=== PATIENT | female | born 1985 | race Caucasian/White ===

== ENCOUNTER 2017-11-24 16:33 | Observation (INO) | payer BC ==
[2017-11-24 17:43] LABS: Urine Blood 2+ (NEG); Urine Glucose 1+ (NEG); Urine Protein 3+ (NEG); Urine pH 6.5 (5.0-7.0)
[2017-11-24 17:47] LABS: Urine Bacteria >50 /HPF (<20); Urine Culture Reflex Order NOT NEEDED
[2017-11-24 17:58] LABS: Absolute Lymphocytes (CBC) 1.8 K/uL (0.7-4.9); Absolute Monocytes 1.1 K/uL (0.1-1.3); Absolute Neutrophil 5.5 K/uL (1.8-8.0); Basophils % 0.5 % (0-1.3); Eosinophils % 0.4 % (0-4.4); Lymphocytes % 20.8 % (15.3-44.8); MCH 28.8 pg (27.0-35.0); MCV 81.4 fL (80-100); MPV 8.3 fL (7.6-11.3); Monocytes % 13.2 % (3.3-12.3)
[2017-11-24 18:13] LABS: Albumin 3.9 g/dL (3.4-5.0); Bilirubin Direct 0.1 mg/dL (0-0.2); Bilirubin Total 0.4 mg/dL (0.2-1.0)
[2017-11-24 18:15] LABS: Potassium 2.6 mmol/L (3.5-5.1)
[2017-11-24] MEDS ORDERED: ONDANSETRON 4 MG/2 ML VIAL ONE (18:20)
[2017-11-24] MEDS ORDERED: NA CHLORIDE 0.9% 1,000 ML ONE (18:42)
[2017-11-24] MEDS ORDERED: FAMOTIDINE 20 MG/2 ML VIAL IV ONE (18:42)
[2017-11-24] MEDS ORDERED: KCL 20 MEQ/100 mL IVPB 20 MEQ/100 ML BAG IV ONE ×2 (18:42→22:00)
[2017-11-24] MEDS ORDERED: POTASSIUM CL SA 10 MEQ TAB PO ONE (18:42)
[2017-11-24] MEDS ORDERED: NA CHLORIDE 0.9% 500 ML ONE ×2 (18:43→22:00)
[2017-11-24] MEDS ORDERED: INSULIN -REGULAR HUMAN 50 UNIT/0.5 ML ML ONE (18:45)
--- NOTE | 2017-11-24 19:02 | RAD REPORT ---
EXAM DESCRIPTION: CTAbdomen Pelvis W Contrast - 11/24/2017 6:46 pm CLINICAL HISTORY: Abdominal pain. diarrhea;Abd pain;Nausea / vomiting COMPARISON: None TECHNIQUE: Biphasic CT imaging of the abdomen and pelvis was performed with 100 ml non-ionic IV cont rast. All CT scans are performed using dose optimization technique as appropriate and may include automated exposure control or mA/KV adjustment according to patient size. FINDINGS: Multiple small pulmonary nodules are present in both lower lobes. Diffuse fatty liver is noted. Cholecystectomy clips are seen. Mild splenomegaly is evident. The pancr eas, adrenal glands and kidneys are within normal limits. No bowel obstruction, free air, free fluid or abscess. The appendix appears absent. No evidence of significant lymphadenopathy. No suspicious bony findings. 4 cm left ovarian follicle noted. IMPRESSION: Diffuse fatty liver with splenomegaly evident. Multiple small pulmonary nodules in both lower lobes, nonspecific. Nonemergent followup CT chest asse ssment is advised.
[2017-11-24 21:46] LABS: BUN Blood Urea Nitrogen 9 mg/dL (7-18); Bicarbonate 25 mmol/L (21-32); Glucose Level 237 mg/dL (74-106); Sodium Level 136 mmol/L (136-145)
[2017-11-24 21:47] LABS: Potassium 2.9 mmol/L (3.5-5.1)
[2017-11-24] MEDS ORDERED: POTASSIUM 25 MEQ EFFERV TAB ONE (22:00)
[2017-11-24] MEDS ORDERED: PROMETHAZINE 25 MG/ML VIAL ONE ×2 (22:18→22:24)
--- NOTE | 2017-11-24 22:50 | ER ---
Nurse's Notes [facility] Name: Tonia Brandt Age: 31 yrs Sex: Female : 1985 Arrival Date: 11/24/2017 Time: 16:36 Bed 23 Private MD: None, None Diagnosis: Nausea and vomiting-Intractable;Diarrhea, unspecified;Hypokalemia Presentation: 11/24 16:56 Presenting complaint: Patient states: On Tuesday she starting having N/V/D and abdominal aj1 pain in the umbilical area. Reports her stool is black and watery. Reports she has been unable to keep down food or fluid. Transition of care: patient was not received from another setting of care. Onset of symptoms was November 19, 2017. Risk Assessment: Do you want to hurt yourself or someone else? Patient reports no desire to harm self or others. Initial Sepsis Screen: Does the patient meet any 2 criteria? HR > 90 bpm. No. Patient's initial sepsis screen is negative. Does the patient have a suspected source of infection? Yes: Acute abdominal pain. Care prior to arrival: None. 16:56 Method Of Arrival: Ambulatory aj 16:56 Acuity: KI 3 aj1 Triage Assessment: 17:00 General: Appears in no apparent distress. uncomfortable, Behavior is calm, cooperative, aj1 appropriate for age. Pain: Complains of pain in umbilical area Pain does not radiate. Pain currently is 8 out of 10 on a pain scale. Quality of pain is described as crampy, Pain began 5 days ago Is continuous. Neuro: Level of Consciousness is awake, alert, obeys commands. Cardiovascular: Patient's skin is warm and dry. Respiratory: Airway is patent Respiratory effort is even, unlabored, Respiratory pattern is regular, symmetrical. GI: Reports lower abdominal pain, diarrhea, intolerance of fluids, intolerance of food, nausea, vomiting. 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 - Social history:: Smoking status: Patient/guardian denies using tobacco. - Ebola Screening: : Patient denies travel to an Ebola-affected area in the 21 days before illness onset. Screenin:13 Abuse screen: Denies threats or abuse. Denies injuries from another. Nutritional kr2 screening: No deficits noted. Tuberculosis screening: No symptoms or risk factors identified. Fall Risk None identified. Assessment: 17:18 General: Appears in no apparent distress. uncomfortable, well groomed, well developed, kr2 Behavior is calm, cooperative, appropriate for age. Pain: Complains of pain in umbilical area, right lower quadrant and left lower quadrant Pain does not radiate. Pain currently is 8 out of 10 on a pain scale. Quality of pain is described as sharp, Is continuous, Alleviated by nothing. Neuro: Level of Consciousness is awake, alert, obeys commands, Oriented to person, place, time, situation, Appropriate for age. Cardiovascular: Capillary refill < 3 seconds in bilateral fingers Patient's skin is warm and dry. Respiratory: Airway is patent Respiratory effort is even, unlabored, Respiratory pattern is regular, symmetrical. GI: Abdomen is non-distended, obese, Bowel sounds present X 4 quads. Abd is soft X 4 quads Abdomen is tender to palpation in umbilical area, right lower quadrant and left lower quadrant. : Urine is cloudy. EENT: Oral mucosa is dry. Derm: Skin is intact, with poor turgor Skin is pink, warm \\T\\ dry. Musculoskeletal: Circulation, motion, and sensation intact. 18:33 Reassessment: Patient refused to drink oral contrast, ARMINDA Dyer notified and ordered kr2 patient to be scanned with IV contrast only. CT department notified and preparing to take patient for CT. 18:47 Reassessment: Patient in CT at this time. kr2 20:09 Reassessment: Patient appears in no apparent distress at this time. Patient and/or kr2 family updated on plan of care and expected duration. Pain level reassessed. Patient is alert, oriented x 3, equal unlabored respirations, skin warm/dry/pink. Patient states, "I don't fee 100% but I feel significantly better" Patient states symptoms have improved. 22:22 Reassessment: Patient complains of nausea, provider notified, medicated as ordered, see kr2 MAY. 22:50 Reassessment: Patient states she will not complete IV potassium, "I am going home I am kr2 not doing this." Patient informed of risks and possible complications of low potassium and need to complete IV potassium. ARMINDA Dyer notified. States he will discharge patient. IV DC'd as patient requested, see procedure notes. 23:00 Reassessment: Patient began vomiting again. Provider notified. Patient informed of kr2 risks of going home with continued vomiting. States, "Ok I understand, I will go ahead and stay." Provider in room at this time speaking with patient as well. 11/25 00:00 Reassessment: Patient crying and complains of "feeling anxious and unable to get kr2 comfortable." Complains of pain to epigastric area, no nausea at this time. Notified ARMINDA Dyer, medicated as ordered, see MAY. 00:30 Reassessment: Patient taken to room 214, receiving nurse Yana at bedside. Patient kr2 verbalizes increased comfort and decreased anxiety. No distress. Vital Signs: 11/24 17:00 BP 126 / 103; Pulse 112; Resp 20; Temp 97.0(TE); Pulse Ox 97% on R/A; Height 5 ft. 7 aj1 in. (170.18 cm); Pain 8/10; 19:45 Weight 67.13 kg (R); kr2 20:10 BP 125 / 68; Pulse 69; Resp 12; Pulse Ox 97% on R/A; kr2 21:00 BP 123 / 82; Pulse 80; Resp 17; Pulse Ox 97% ; kr2 23:00 BP 126 / 72; Pulse 80; Resp 17; Pulse Ox 97% ; kr2 11/25 00:00 BP 130 / 76; Pulse 88; Resp 17; Pulse Ox 97% on R/A; kr2 11/24 19:45 Body Mass Index 23.18 (67.13 kg, 170.18 cm) kr2 ED Course: 11/24 16:36 Patient arrived in ED. sb2 16:36 None, None is Private Physician. sb2 16:59 Triage completed. aj1 17:00 Arm band placed on Patient placed in an exam room. aj1 17:03 Ariel Jimenez PA is PHCP. cp 17:03 Yasir Lawler MD is Attending Physician. cp 17:12 Katheryn Sales, BESS is Primary Nurse. kr2 17:13 Patient has correct armband on for positive identification. Bed in low position. Call kr2 light in reach. Side rails up X 1. Pulse ox on. NIBP on. Door closed. Warm blanket given. Head of bed elevated. 17:15 Missed attempt(s): 22 gauge in right forearm. Bleeding controlled, band aid applied, jp3 catheter tip intact. 17:20 Urine collected: clean catch specimen, clear, tigre colored, Amount Voided: 6mL. jp3 17:29 Urine Microscopic Only Sent. jp3 17:40 Inserted saline lock: 22 gauge in right antecubital area, using aseptic technique. ss Blood collected. 18:46 CT Abd/Pelvis - W/Contrast In Process Unspecified. EDMS 19:17 EKG done, by ED staff, reviewed by Ariel HILLIARD. kr2 21:00 Repeat lab(s) drawn. by me, sent to lab. EKG done, by ED staff, reviewed by Ariel Jimenez kr2 PA. 22:48 Jaimee Ramires MD is Referral Physician. cp 23:05 Inserted saline lock: 22 gauge in left forearm, using aseptic technique. ,using aseptic kr2 technique. Performed by BESS Smith. 23:14 Janna Howard MD is Hospitalizing Provider. 11/25 00:15 No provider procedures requiring assistance completed. Patient admitted, IV remains in kr2 place. Administered Medications: 11/24 18:28 Drug: Zofran 4 mg Route: IVP; Site: right antecubital; kr2 20:20 Follow up: Response: No adverse reaction; Nausea is decreased kr2 19:16 Drug: Pepcid 20 mg Route: IVP; Site: right antecubital; kr2 20:22 Follow up: Response: No adverse reaction; Pain is decreased; Nausea is decreased kr2 19:16 Drug: Potassium Chloride 40 mEq Route: PO; kr2 20:21 Follow up: Response: No adverse reaction kr2 20:55 Follow up: Response: No adverse reaction kr2 19:17 Drug: Potassium Chloride 20 mEq Route: IV; Rate: calculated rate; Site: right kr2 antecubital; 20:55 Follow up: Response: No adverse reaction; IV Status: Completed infusion kr2 19:17 Drug: NS 0.9% 1000 ml Route: IV; Rate: 1 bolus; Site: right antecubital; kr2 20:22 Follow up: Response: No adverse reaction; IV Status: Completed infusion kr2 19:18 Drug: NovoLIN R 7 units {Co-Signature: zoë (Luis Khanna RN).} Route: Sub-Q; Site: kr2 right upper arm; 20:27 Follow up: Response: No adverse reaction; Blood sugar is lowered kr2 20:22 Drug: NS 0.9% 1000 ml Route: IV; Rate: 150 ml/hr; Site: right antecubital; kr2 22:12 Drug: Potassium Chloride 20 mEq Route: IV; Rate: calculated rate; Site: right kr2 antecubital; 11/25 00:00 Follow up: Response: No adverse reaction; IV Status: Completed infusion kr2 11/24 22:22 Drug: Phenergan 25 mg Route: IVP; Site: right antecubital; kr2 22:45 Follow up: Response: No adverse reaction; Nausea is decreased kr2 22:24 Drug: Potassium Effervescent Tablet 50 mEq Route: PO; kr2 23:00 Follow up: Response: Patient vomited, provider notified kr2 11/25 00:04 Drug: fentaNYL (PF) 25 mcg Route: IVP; Site: left forearm; kr2 00:15 Follow up: Response: No adverse reaction; Pain is decreased kr2 00:05 Drug: Ativan 0.5 mg Route: IVP; Site: left forearm; kr2 00:15 Follow up: Response: No adverse reaction; Anxiety decreased kr2 Point of Care Testing: Blood Glucose: 11/24 20:26 Blood Glucose: 239 mg/dL; kr2 Ranges: Outcome: 22:49 Discharge ordered by MD. cp 23:15 Decision to Hospitalize by Provider. cp 11/25 00:15 Instructed on the need for admit, Demonstrated understanding of instructions. kr2 00:15 Discharge instructions given to patient. kr2 00:20 Admitted to Tele accompanied by nurse, via wheelchair, room 214, with chart, Report kr2 called to BESS Millan 00:20 Condition: stable 00:26 Patient left the ED. kr2 Signatures: Dispatcher [employer] EDPenny Edge RN RN aj1 Ade Gil RN RN ss Ariel Jimenez PA PA cp Reaves, Karey, RN RN kr2 Charmaine Mike sb2 Georges Steiner jp3 Luis Khanna RN rv Corrections: (The following items were deleted from the chart) 11/24 20:29 20:09 Reassessment: Patient appears in no apparent distress at this time. Patient kr2 and/or family updated on plan of care and expected duration. Pain level reassessed. Patient is alert, oriented x 3, equal unlabored respirations, skin warm/dry/pink. Patient denies pain at this time. kr2 11/25 00:58 00:56 Condition: stable kr2 kr2 :58 00:56 Admitted to Tele accompanied by nurse, via wheelchair, room 214, with chart, kr2 Report called to BESS Millan kr2 00:15 Instructed on the need for admit, Demonstrated understanding of instructions, kr2 kr2
--- NOTE | 2017-11-24 22:50 | EDPHYS ---
Physician Documentation [facility] Name: Tonia Brandt Age: 31 yrs Sex: Female : 1985 Arrival Date: 11/24/2017 Time: 16:36 Bed 23 Private MD: None, None ED Physician Yasir Lawler HPI: 11/24 17:30 This 31 yrs old Female presents to ER via Ambulatory with complaints of cp Nausea/Vomiting/Diarrhea. 17:30 The patient presents to the emergency department with nausea, that is moderate, cp vomiting, that is intermittent, diarrhea, that is intermittent, abdominal pain. Onset: The symptoms/episode began/occurred 4 day(s) ago. Possible causes: unknown. Associated signs and symptoms: Pertinent negatives: constipation, fever, GI bleeding. Severity of symptoms: in the emergency department the symptoms are unchanged despite home interventions. 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 - Social history:: Smoking status: Patient/guardian denies using tobacco. - Ebola Screening: : Patient denies travel to an Ebola-affected area in the 21 days before illness onset. ROS: 17:35 Constitutional: Positive for poor PO intake, Negative for fever. cp 17:35 Eyes: Negative for injury, pain, redness, and discharge. cp 17:35 Cardiovascular: Negative for chest pain, edema, palpitations. cp 17:35 ENT: Negative for drainage from ear(s), ear pain, sore throat, difficulty swallowing, cp difficulty handling secretions. 17:35 Respiratory: Negative for cough, shortness of breath, wheezing. 17:35 Abdomen/GI: Positive for abdominal pain, nausea, vomiting, diarrhea, anorexia, black/tarry stool, Negative for constipation, rectal bleeding. 17:35 Back: Negative for radiated pain. 17:35 : Negative for urinary symptoms. 17:35 Skin: Negative for cellulitis, rash. 17:35 Neuro: Negative for altered mental status, headache, syncope, near syncope, weakness. 17:35 All other systems are negative. Exam: 17:41 Head/Face: Normocephalic, atraumatic. Eyes: Pupils equal round and reactive to light, cp extra-ocular motions intact. Lids and lashes normal. Conjunctiva and sclera are non-icteric and not injected. Cornea within normal limits. Periorbital areas with no swelling, redness, or edema. ENT: Nares patent. No nasal discharge, no septal abnormalities noted. Tympanic membranes are normal and external auditory canals are clear. Oropharynx with no redness, swelling, or masses, exudates, or evidence of obstruction, uvula midline. Mucous membranes moist. Chest/axilla: Normal chest wall appearance and motion. Nontender with no deformity. No lesions are appreciated. 17:41 Constitutional: The patient appears in no acute distress, alert, awake, non-toxic, well developed, well nourished. 17:41 Cardiovascular: Rate: tachycardic, Rhythm: regular, Edema: is not appreciated, JVD: is not appreciated. 17:41 Respiratory: the patient does not display signs of respiratory distress, Respirations: normal, no use of accessory muscles, no retractions, no splinting, no tachypnea, labored breathing, is not present, Breath sounds: are clear throughout, no decreased breath sounds, no stridor, no wheezing. 17:41 Abdomen/GI: Inspection: abdomen appears normal, Bowel sounds: active, all quadrants, Palpation: soft, in all quadrants, mild abdominal tenderness, in all quadrants, rebound tenderness, is not appreciated, voluntary guarding, is not appreciated, involuntary guarding, is not appreciated, Rectal exam: Stool: guaiac negative, black. 17:41 Back: pain, is absent, ROM is normal. 17:41 Skin: cellulitis, is not appreciated, no rash present. 19:15 ECG was reviewed by the Attending Physician. Vital Signs: 17:00 BP 126 / 103; Pulse 112; Resp 20; Temp 97.0(TE); Pulse Ox 97% on R/A; Height 5 ft. 7 aj1 in. (170.18 cm); Pain 8/10; 19:45 Weight 67.13 kg (R); kr2 20:10 BP 125 / 68; Pulse 69; Resp 12; Pulse Ox 97% on R/A; kr2 21:00 BP 123 / 82; Pulse 80; Resp 17; Pulse Ox 97% ; kr2 23:00 BP 126 / 72; Pulse 80; Resp 17; Pulse Ox 97% ; kr2 11/25 00:00 BP 130 / 76; Pulse 88; Resp 17; Pulse Ox 97% on R/A; kr2 11/24 19:45 Body Mass Index 23.18 (67.13 kg, 170.18 cm) [facility] MDM: 11/24 17:03 Patient medically screened. cp 18:00 Differential diagnosis: Nonspecific abd pain, gastritis, cholecystitis, pancreatitis, cp viral gastroenteritis, gastroenteritis, GI bleed, dehydration. 23:12 Data reviewed: vital signs, nurses notes, lab test result(s), EKG, radiologic studies, cp CT scan, and as a result, I will admit patient. 23:12 Response to treatment: the patient's symptoms have mildly improved after treatment. cp 23:15 Physician consultation: Janna Howard MD was contacted at 23:15, regarding admission, cp to the medical/surgical unit. patient's condition. 11/24 17:17 Order name: Amylase, Serum; Complete Time: 18:16 cp 11/24 17:17 Order name: Basic Metabolic Panel; Complete Time: 18:16 cp 11/24 19:10 Interpretation: Normal except: NA 132; K 2.6; CL 96; GLUC 322; GFR 83. cp 11/24 17:17 Order name: CBC with Diff; Complete Time: 19:09 cp 11/24 19:09 Interpretation: Normal except: RBC 5.90; HGB 17.0; HCT 48.0; MCV 81.4; MN% 13.2. cp 11/24 17:17 Order name: Creatinine for Radiology; Complete Time: 18:16 cp 11/24 17:17 Order name: Hepatic Function; Complete Time: 18:16 cp 11/24 19:10 Interpretation: Normal except: AST 59; ALK 149; TP 9.0; GLOB 5.1; A/G 0.8. cp 11/24 17:17 Order name: Lipase; Complete Time: 18:16 cp 11/24 17:17 Order name: Urine Microscopic Only; Complete Time: 18:16 cp 11/24 19:10 Interpretation: Normal except: UWBC 10-20; URBC 10-20; UBACT >50; SQEPI LOADED. cp 11/24 17:29 Order name: Urine Dipstick--Ancillary (enter results); Complete Time: 18:16 eb 11/24 19:11 Interpretation: Normal except: UGLUC 1+; UBLD 2+; UPROT 3+; UESTR TRACE. cp 11/24 17:29 Order name: Urine --Ancillary (enter results); Complete Time: 18:16 eb 11/24 17:42 Order name: Guiac eb 11/24 20:41 Order name: BMP: redraw after potassium completes; Complete Time: 21:49 cp 11/24 21:49 Interpretation: Normal except: K 2.9; GLUC 237. cp 11/24 18:06 Order name: CT Abd/Pelvis - W/Contrast; Complete Time: 19:09 cp 11/24 18:20 Order name: EKG; Complete Time: 18:20 cp 11/24 17:17 Order name: Urine Test (obtain specimen); Complete Time: 17:29 cp 11/24 17:17 Order name: IV Saline Lock; Complete Time: 17:40 cp 11/24 17:17 Order name: Labs collected and sent; Complete Time: 17:40 cp 11/24 17:17 Order name: Urine Dipstick-Ancillary (obtain specimen); Complete Time: 17:29 cp 11/24 18:20 Order name: EKG - Nurse/Tech; Complete Time: 19:17 cp 11/24 20:41 Order name: EKG - Nurse/Tech: repeat after potassium completes; Complete Time: 21:11 cp 11/24 21:51 Order name: PO challenge; Complete Time: 22:24 cp EC:15 Rate is 94 beats/min. Rhythm is regular. ID interval is normal. QRS interval is normal. cp Interpreted by me. Reviewed by me. Administered Medications: 18:28 Drug: Zofran 4 mg Route: IVP; Site: right antecubital; kr2 20:20 Follow up: Response: No adverse reaction; Nausea is decreased kr2 19:16 Drug: Pepcid 20 mg Route: IVP; Site: right antecubital; kr2 20:22 Follow up: Response: No adverse reaction; Pain is decreased; Nausea is decreased kr2 19:16 Drug: Potassium Chloride 40 mEq Route: PO; kr2 20:21 Follow up: Response: No adverse reaction kr2 20:55 Follow up: Response: No adverse reaction kr2 19:17 Drug: Potassium Chloride 20 mEq Route: IV; Rate: calculated rate; Site: right kr2 antecubital; 20:55 Follow up: Response: No adverse reaction; IV Status: Completed infusion kr2 19:17 Drug: NS 0.9% 1000 ml Route: IV; Rate: 1 bolus; Site: right antecubital; kr2 20:22 Follow up: Response: No adverse reaction; IV Status: Completed infusion kr2 19:18 Drug: NovoLIN R 7 units {Co-Signature: rv (Luis Khanna RN).} Route: Sub-Q; Site: [facility] right upper arm; 20:27 Follow up: Response: No adverse reaction; Blood sugar is lowered kr2 20:22 Drug: NS 0.9% 1000 ml Route: IV; Rate: 150 ml/hr; Site: right antecubital; kr2 22:12 Drug: Potassium Chloride 20 mEq Route: IV; Rate: calculated rate; Site: right kr2 antecubital; 11/25 00:00 Follow up: Response: No adverse reaction; IV Status: Completed infusion kr2 11/24 22:22 Drug: Phenergan 25 mg Route: IVP; Site: right antecubital; kr2 22:45 Follow up: Response: No adverse reaction; Nausea is decreased kr2 22:24 Drug: Potassium Effervescent Tablet 50 mEq Route: PO; kr2 23:00 Follow up: Response: Patient vomited, provider notified kr2 11/25 00:04 Drug: fentaNYL (PF) 25 mcg Route: IVP; Site: left forearm; kr2 00:15 Follow up: Response: No adverse reaction; Pain is decreased kr2 00:05 Drug: Ativan 0.5 mg Route: IVP; Site: left forearm; kr2 00:15 Follow up: Response: No adverse reaction; Anxiety decreased kr2 Point of Care Testing: Blood Glucose: 11/24 20:26 Blood Glucose: 239 mg/dL; kr2 Ranges: Critical Glucose Levels:Adult <50 mg/dl or >400 mg/dl <40 mg/dl or >180 mg/dl Disposition: 11/24/17 23:15 Hospitalization ordered by Janna Howard for Observation. Preliminary diagnosis are Nausea and vomiting - Intractable, Diarrhea, unspecified, Hypokalemia. - Bed requested for Telemetry/MedSurg (observation). - Status is Observation. kr2 - Condition is Stable. - Problem is new. - Symptoms have improved. UTI on Admission? No Addendum: 11/29/2017 23:41 Co-signature as Attending Physician, Yasir Lawler MD. r n Signatures: Dispatcher [employer] EDPenny Edge RN RN aj1 Jaimie Parsons RN RN mw Nieto, Roman, MD MD rn Page, Corey, PA PA Katheryn Martínez RN RN kr2 Luis Khanna RN rv Corrections: (The following items were deleted from the chart) 11/24 22:53 22:49 11/24/2017 22:49 Discharged to Home. Impression: Hypokalemia; Nausea and cp vomiting; Diarrhea, unspecified. Condition is Stable. Forms are Medication Reconciliation Form, Thank You Letter, Antibiotic Education, Prescription Opioid Use. Follow up: Jaimee Ramires; When: 2 - 3 days; Reason: diarrhea and vomiting. Follow up: Private Physician; When: Tomorrow; Reason: recheck potassium level. Problem is new. Symptoms have improved. 23:21 23:15 Hospitalization Ordered by Janna Howard MD for Observation. Preliminary diagnosis is Nausea and vomiting - Intractable; Diarrhea, unspecified; Hypokalemia. Bed requested for Telemetry/MedSurg (observation). Status is Observation. Condition is Stable. Problem is new. Symptoms have improved. UTI on Admission? No. cp 11/25 00:26 11/24 23:21 11/24/2017 23:15 Hospitalization Ordered by Janna Howard MD for kr2 Observation. Preliminary diagnosis is Nausea and vomiting - Intractable; Diarrhea, unspecified; Hypokalemia. Bed requested for Telemetry/MedSurg (observation). Status is Observation. Condition is Stable. Problem is new. Symptoms have improved. UTI on Admission? No. mw
[2017-11-24] MEDS ORDERED: ACETAMINOPHEN 500 MG TAB PO PRN (23:27)
[2017-11-24] MEDS ORDERED: LORazepam 2 MG/ML VIAL ONE (23:43)
[2017-11-24] MEDS ORDERED: NA CHLORIDE 0.9% 250 ML ONE (23:46)
[2017-11-25] MEDS ORDERED: FENTANYL CITR 100 MCG/2 ML ONE (00:07)
[2017-11-25] MEDS: NA CHLORIDE 0.9% 1,000 ML IV SCH ×3 (00:43→19:13)
[2017-11-25] MEDS: ONDANSETRON 4 MG/2 ML VIAL IV SCH ×4 (00:43→11:45)
[2017-11-25] MEDS: MORPHINE 4 MG/ML SYR IV PRN ×3 (02:28→10:46)
[2017-11-25 04:09] LABS: Urine Appearance CLOUDY; Urine Bilirubin NEGATIVE (NEG); Urine Blood TRACE (NEG); Urine Color YELLOW; Urine Glucose 1+ (NEG); Urine Protein 1+ (NEG); Urine Specific Gravity >=1.030 (1.005-1.030); Urine Urobilinogen 0.2 mg/dL (0.2-1.0); Urine pH 6.5 (5.0-7.0)
[2017-11-25 04:16] LABS: Urine Microscopic Reflex ORDER UMIC
[2017-11-25 05:20] LABS: Urine Bacteria >50 /HPF (<20); Urine Culture Reflex Order NOT NEEDED; Urine RBC <5 /HPF (NONE SEEN)
[2017-11-25 05:42] LABS: ALT/SGPT 61 U/L (12-78); AST/SGOT 50 U/L (15-37); Alkaline Phosphatase 114 U/L (45-117); BUN Blood Urea Nitrogen 7 mg/dL (7-18); Bicarbonate 25 mmol/L (21-32); Bilirubin Total 0.3 mg/dL (0.2-1.0); Glucose Level 153 mg/dL (74-106); Protein, Total 6.8 g/dL (6.4-8.2); Sodium Level 142 mmol/L (136-145)
[2017-11-25 05:50] LABS: Absolute Lymphocytes (CBC) 1.8 K/uL (0.7-4.9); Absolute Monocytes 0.8 K/uL (0.1-1.3); Basophils % 0.5 % (0-1.3); Eosinophils % 0.9 % (0-4.4); Hematocrit 39.5 % (36.0-45.0); Lymphocytes % 26.7 % (15.3-44.8); MCH 28.8 pg (27.0-35.0); MPV 8.2 fL (7.6-11.3); Monocytes % 11.9 % (3.3-12.3); RBC Red Blood Cell Count 4.87 M/uL (3.86-4.86)
[2017-11-25] MEDS ORDERED: KCL 20 MEQ/100 mL IVPB 20 MEQ/100 ML BAG IV SCH (06:00)
[2017-11-25] MEDS: KCL 20 MEQ/100 mL IVPB 20 MEQ/100 ML BAG IV SCH ×2 (06:32→08:46)
--- NOTE | 2017-11-25 08:24 | P.HP ---
Certification for Inpatient Patient admitted to: Observation With expected LOS: <2 Midnights Patient will require the following post-hospital care: None Practitioner: I am a practitioner with admitting privileges, knowledge of patient current condition, hospital course, and medical plan of care. Services: Services provided to patient in accordance with Admission requirements found in Title 42 Section 412.3 of the Code of Federal Regulations Patient History Date of Service: 11/25/17 Reason for admission: Intractable nausea and vomiting and diarrhea History of Present Illness: Patient is a 31-year-old female who came to the hospital with intractable nausea and vomiting. Patient also has some abdominal discomfort mainly around the umbilical region. She has also been having watery stools. She said her mother was having similar complaints as well. Otherwise no one in her household has been suffering from the same issues. She came into the emergency room her workup revealed that she had a fatty liver along with splenomegaly, and her CT scan also revealed some pulmonary nodules. Patient was also severely hypokalemic it had some other mildly elevated liver enzymes. At this time patient be admitted to the hospital and treated conservatively with IV hydration, anti emetics, pain control, and will start a clear liquid diet in the next 24-48 hr. Allergies levofloxacin [From Levaquin] Allergy (Mild, Verified 11/25/17 00:27) Nausea/Vomiting Home Medications: Unobtainable 11/25/17 - Past Medical/Surgical History Has patient received pneumonia vaccine in the past: No Diabetic: Yes -: DM -: Cholecystectomy -: appy -: breast reduction -: - Family History Mother Family History: Reviewed- Non-Contributory - Social History Smoking Status: Never smoker Alcohol use: Yes CD- Drugs: No Caffeine use: Yes Place of Residence: Home Review of Systems 10-point ROS is otherwise unremarkable Physical Examination - Vital Signs Temperature: 97.5 F Blood Pressure: 103/65 Pulse: 82 Respirations: 18 Pulse Ox (%): 94 - Physical Exam General: Alert, In no apparent distress, Oriented x3 HEENT: Atraumatic, PERRLA, Mucous membr. moist/pink, EOMI, Sclerae nonicteric Neck: Supple, 2+ carotid pulse no bruit, No LAD, Without JVD or thyroid abnormality Respiratory: Clear to auscultation bilaterally, Normal air movement Cardiovascular: Regular rate/rhythm, Normal S1 S2 Gastrointestinal: Normal bowel sounds, Soft and benign, Non-distended, No rebound, No guarding, Tenderness Musculoskeletal: No clubbing, No swelling, No tenderness Integumentary: No rashes Neurological: Normal gait, Normal speech, Normal strength at 5/5 x4 extr, Normal tone, Sensation intact, Cranial nerves 3-12 intact, Normal reflexes 2+, Normal affect Lymphatics: No axilla or inguinal lymphadenopathy - Studies Laboratory Data (last 24 hrs) 11/24/17 21:00: Sodium 136, Potassium 2.9 L*, BUN 9, Creatinine 0.60, Glucose 237 H 11/24/17 17:35: Creatinine 0.80 11/24/17 17:35: WBC 8.5, Hgb 17.0 H, Hct 48.0 H, Plt Count 272 11/24/17 17:35: Sodium 132 L, Potassium 2.6 L*, BUN 10, Creatinine 0.80, Glucose 322 H, Total Bilirubin 0.4, AST 59 H, ALT 78, Alkaline Phosphatase 149 H , Amylase 40, Lipase 81 Assessment & Plan - Problems (Diagnosis) (1) Viral gastroenteritis Current Visit: Yes Status: Acute - Plan 1. Continue with IV hydration 2. Continue with IV antiemetic 3. Continue with pain control as needed 4. NPO and slowly advanced diet to clear liquids 5. GI follow-up as an outpatient to evaluate CT scan findings; patient should get a CT scan with contrast in next 12 weeks 6. Monitor CBC, BMP, LFTs and lipase along with electrolytes. Anticipate discharge in the next 24-48 hr as patient's symptomatology improves 7. GI and DVT prophylaxis Discharge Plan: Home Plan to discharge in: 24 Hours - Advance Directives Does patient have a Living Will: No Does patient have a Durable POA for Healthcare: No - Code Status/Comfort Care Code Status Assessed: Yes Code Status: Full Code Critical Care: No Time Spent Managing PTS Care (In Minutes): 50
[2017-11-25] MEDS ORDERED: POTASSIUM 25 MEQ EFFERV TAB PO ONE ×2 (12:33→21:50)
[2017-11-25] MEDS: ONDANSETRON 4 MG (ODT) TAB PO PRN ×3 (12:43→21:13)
[2017-11-25] MEDS: TRAMADOL HCL 50 MG TAB PO PRN ×3 (12:44→23:51)
[2017-11-25 15:20] LABS: Urine Appearance CLOUDY; Urine Bilirubin NEGATIVE (NEG); Urine Blood NEGATIVE (NEG); Urine Color YELLOW; Urine Glucose NEGATIVE (NEG); Urine Protein 1+ (NEG); Urine Urobilinogen 0.2 mg/dL (0.2-1.0); Urine pH 5.5 (5.0-7.0)
[2017-11-25 15:28] LABS: Urine Microscopic Reflex ORDER UMIC
[2017-11-25 15:53] LABS: Urine Bacteria 20-50 /HPF (<20); Urine Culture Reflex Order REFLEXED; Urine Mucus 1+ /HPF (NONE SEEN); Urine RBC <5 /HPF (NONE SEEN)
[2017-11-25] MEDS ORDERED: MELATONIN 3 MG TABLET PO PRN (16:50)
[2017-11-25] MEDS: METFORMIN ER 500 MG TAB PO SCH (21:00)
[2017-11-25] MEDS ORDERED: LORazepam 2 MG/ML VIAL IV ONE (21:00)
[2017-11-25] MEDS: LORAZEPAM 0.5 MG TABLET PO ONE ×2 (21:05→21:39)
--- NOTE | 2017-11-26 06:10 | EKG ---
Test Date: 2017-11-24 Test Time: 21:03:55 Advertising Writer: SILVIA MEASUREMENT RESULTS: Intervals: Rate: 87 FL: 160 QRSD: 96 QT: 386 QTc: 464 [place]: P: 49 FL: 160 QRS: 17 T: 35 INTERPRETIVE STATEMENTS: Sinus rhythm with fusion complexes Low voltage QRS Incomplete right bundle branch block Prolonged QT Abnormal ECG Compared to ECG 11/24/2017 19:08:28 Fusion complex(es) now present Prolonged QT interval now present Myocardial infarct finding no longer present Electronically Signed On 11-26-17 06:08:05 CDT by Kartik Carter
--- NOTE | 2017-11-26 06:11 | EKG ---
Test Date: 2017-11-24 Test Time: 19:08:28 [employer] Analyst: SILVIA MEASUREMENT RESULTS: Intervals: Rate: 94 FL: 168 QRSD: 92 QT: 362 QTc: 452 [place]: P: 41 FL: 168 QRS: -4 T: 42 INTERPRETIVE STATEMENTS: Normal sinus rhythm Low voltage QRS Incomplete right bundle branch block Inferior infarct, age undetermined Abnormal ECG Compared to ECG 08/17/2016 17:09:10 Incomplete right bundle-branch block now present Myocardial infarct finding now present Electronically Signed On 11-26-17 06:08:13 CDT by Kartik Carter
[2017-11-26 06:16] LABS: BUN Blood Urea Nitrogen 3 mg/dL (7-18); Bicarbonate 26 mmol/L (21-32); Glucose Level 155 mg/dL (74-106); Potassium 3.3 mmol/L (3.5-5.1); Sodium Level 140 mmol/L (136-145)
[2017-11-26] MEDS ORDERED: POTASSIUM 25 MEQ EFFERV TAB PO ONE (06:34)
[2017-11-26] MEDS: METFORMIN ER 500 MG TAB PO SCH (09:00)
[2017-11-26] MEDS: TRAMADOL HCL 50 MG TAB PO PRN (09:53)
--- NOTE | 2017-11-26 13:03 | P.SSS ---
Patient History Date of Service: 11/26/17 Reason for admission: Intractable nausea and vomiting and diarrhea History of Present Illness: Patient is a 31-year-old female who came to the hospital with intractable nausea and vomiting. Patient also has some abdominal discomfort mainly around the umbilical region. She has also been having watery stools. She said her mother was having similar complaints as well. Otherwise no one in her household has been suffering from the same issues. She came into the emergency room her workup revealed that she had a fatty liver along with splenomegaly, and her CT scan also revealed some pulmonary nodules. Patient was also severely hypokalemic it had some other mildly elevated liver enzymes. At this time patient be admitted to the hospital and treated conservatively with IV hydration, anti emetics, pain control, and will start a clear liquid diet in the next 24-48 hr. Allergies Allergies levofloxacin [From Levaquin] Allergy (Mild, Verified 11/25/17 00:27) Nausea/Vomiting Home Medications: Metformin ER [Glucophage ER*] 1 tab PO BID 11/25/17 levoFLOXacin [Levaquin] 500 mg PO DAILY #10 tab 11/26/17 metroNIDAZOLE [Flagyl] 500 mg PO Q8H #30 tablet 11/26/17 - Past Medical/Surgical History Has patient received pneumonia vaccine in the past: No Diabetic: Yes -: DM -: Cholecystectomy -: appy -: breast reduction -: - Social History Smoking Status: Never smoker Alcohol use: Yes CD- Drugs: No Caffeine use: Yes Place of Residence: Home Review of Systems 10-point ROS is otherwise unremarkable Physical Examination - Vital Signs Temperature: 97.3 F Blood Pressure: 111/74 Pulse: 83 Respirations: 16 Pulse Ox (%): 95 - Physical Exam General: Alert, In no apparent distress HEENT: Atraumatic, PERRLA, Mucous membr. moist/pink, EOMI, Sclerae nonicteric Neck: Supple, 2+ carotid pulse no bruit, No LAD, Without JVD or thyroid abnormality Respiratory: Clear to auscultation bilaterally, Normal air movement Cardiovascular: Regular rate/rhythm, Normal S1 S2 Gastrointestinal: Normal bowel sounds, No tenderness Musculoskeletal: No tenderness Integumentary: No rashes Neurological: Normal gait, Normal speech, Normal strength at 5/5 x4 extr, Normal tone, Normal affect Lymphatics: No axilla or inguinal lymphadenopathy - Studies Microbiology Data (last 24 hrs): 11/24/17 17:42 Stool Occult Blood - Final - Diagnosis (Problem(s)) (1) UTI (urinary tract infection) Status: Acute Plan: UA with UTI Culture pending. But will discharge with Levaquin and F,u with Culture and update the patient if any changes Qualifiers: Urinary tract infection type: acute cystitis Hematuria presence: without hematuria Qualified Code(s): N30.00 - Acute cystitis without hematuria (2) Viral gastroenteritis Onset Date: 11/25/17 Current Visit: Yes Status: Resolved Treatment Summary: Pt remained stable while in hospital Was Admitted with Gastroenteritis. N.V resolved today, Diarrhea resolved today as well and thus patient discharged home. Also had UTI and culture pending. DC with Levaquin. - Disposition Disposition: ROUTINE DISCHARGE Condition: GOOD Diet: Regular Activity: Ad ulysses
== END 2017-11-26 15:10 | disposition home or self-care (01) ==
LOC: ER 16:33 → ERHOLD 23:24 → 2ND 23:33
PROVIDERS: ADMIT Hospitalist; ATTEND Hospitalist
DX: A08.4 Viral intestinal infection, unspecified (principal); N30.00 Acute cystitis without hematuria; E87.6 Hypokalemia; E11.9 Type 2 diabetes mellitus without complications
CPT/HCPCS: 36415; 74177; 80048; 80053; 80076; 81003; 81015; 81025; 82150; 82272; 82962; 83690; 84132; 85025; 87045; 87046; 87077; 87086; 87088; 87177; 87186; 87209; 89055; 93005; 96365; 96367; 96372; 96375; 99285; G0378; J2405; J2550; J3010; J7030; Q9967

== ENCOUNTER 2018-12-26 11:53 | Emergency (ER) | payer BC ==
--- NOTE | 2018-12-26 12:29 | EDPHYS ---
Physician Documentation [facility] Name: Tonia Brandt Age: 33 yrs Sex: Female : 1985 Arrival Date: 12/26/2018 Time: 11:57 Bed 12 Private MD: ED Physician Yasir Lawler HPI: 12/26 12:23 This 33 yrs old Female presents to ER via Ambulatory with complaints of Ear rn Pain. 12:23 The patient presents with pain, swelling. The complaints affect the right ear. Onset: rn The symptoms/episode began/occurred 3 day(s) ago. Modifying factors: The symptoms are alleviated by nothing, the symptoms are aggravated by touching. Severity of symptoms: At their worst the symptoms were mild in the emergency department the symptoms are unchanged. The patient has not experienced similar symptoms in the past. Reports right ear pain and redness, began a few days ago, is now 3-4 weeks s/p new ear piercing, no drainage. No fever. Skin has overgrown earring. . INTERVENTIONAL NURSE: 12:03 LMP 11/30/2018 aj1 Historical: - Allergies: 12:03 Levaquin; aj1 - Home Meds: 12:03 Keppra Oral [Active]; aj1 - PMHx: 12:03 Seizures; aj1 - Immunization history:: Flu vaccine is not up to date. - Social history:: Smoking status: Patient/guardian denies using tobacco. - Ebola Screening: : Patient denies travel to an Ebola-affected area in the 21 days before illness onset. - Family history:: not pertinent. - Hospitalizations: : No recent hospitalization is reported. ROS: 12:23 Constitutional: Negative for fever, chills, and weight loss, ENT: + right ear pain and rn swelling Exam: 12:23 Constitutional: This is a well developed, well nourished patient who is awake, alert, rn and in no acute distress. ENT: + right ear redness, no fluctuance, + skin overgrowth of right inner earring and piercing. Vital Signs: 12:03 BP 116 / 89; Pulse 101; Resp 18; Temp 97.7; Pulse Ox 100% on R/A; Weight 74.84 kg (R); aj1 Height 5 ft. 7 in. (170.18 cm) (R); 12:03 Body Mass Index 25.84 (74.84 kg, 170.18 cm) aj1 Procedures: 12:28 Foreign Body Removal: piece of jewelry, from the right right ear, by using alligator rn clamps, incising to remove, Dressing: none, The patient tolerated the removal well. MDM: 12:09 Patient medically screened. rn 12:23 Differential diagnosis: foreign body, cellulitis of ear. Data reviewed: vital signs, rn nurses notes, and as a result, I will discharge patient. Counseling: I had a detailed discussion with the patient and/or guardian regarding: the historical points, exam findings, and any diagnostic results supporting the discharge/admit diagnosis, the need for outpatient follow up, to return to the emergency department if symptoms worsen or persist or if there are any questions or concerns that arise at home. ED course: Had to remove earring as skin had overgrown it, no purulence. Will cover with abx. . Administered Medications: No medications were administered Disposition: 12/26/18 12:27 Discharged to Home. Impression: Cellulitis of external ear. - Condition is Stable. - Discharge Instructions: Cellulitis, Adult. - Prescriptions for Clindamycin HCl 300 mg Oral Capsule - take 1 capsule by ORAL route every 6 hours for 10 days; 40 capsule. - Medication Reconciliation Form, Thank You Letter, Antibiotic Education, Prescription Opioid Use form. - Follow up: Private Physician; When: As needed; Reason: Recheck today's complaints, Re-evaluation by your physician. - Problem is new. - Symptoms have improved. Signatures: Penny Hernandez RN RN aj1 Yasir Lawler MD MD sports management intern: (The following items were deleted from the chart) 13:01 12:27 12/26/2018 12:27 Discharged to Home. Impression: Cellulitis of external ear. aj1 Condition is Stable. Forms are Medication Reconciliation Form, Thank You Letter, Antibiotic Education, Prescription Opioid Use. Follow up: Private Physician; When: As needed; Reason: Recheck today's complaints, Re-evaluation by your physician. Problem is new. Symptoms have improved. rn
--- NOTE | 2018-12-26 12:29 | ER ---
Nurse's Notes [facility] Name: Tonia Brandt Age: 33 yrs Sex: Female : 1985 Arrival Date: 12/26/2018 Time: 11:57 Bed 12 Private MD: Diagnosis: Cellulitis of external ear Presentation: 12/26 12:01 Presenting complaint: Patient states: "I got piercing and I think one's infected" aj1 Reports getting her ears pierced one month ago, Yesterday she noticed redness and swelling to the right ear. Denies drainage. Denies fever. Transition of care: patient was not received from another setting of care. Onset of symptoms was December 26, 2018. Risk Assessment: Do you want to hurt yourself or someone else? Patient reports no desire to harm self or others. Initial Sepsis Screen: Does the patient meet any 2 criteria? No. Patient's initial sepsis screen is negative. Does the patient have a suspected source of infection? Yes: Skin breakdown/wound. Care prior to arrival: None. 12:01 Method Of Arrival: Ambulatory [facility] 12:01 Acuity: KI 4 aj1 Triage Assessment: 12:03 General: Appears in no apparent distress. uncomfortable, Behavior is calm, cooperative, aj1 appropriate for age. Pain: Complains of pain in right ear Pain currently is 6 out of 10 on a pain scale. EENT: Reports right ear pain. Neuro: Level of Consciousness is awake, alert, obeys commands, Oriented to person, place, time, situation. Cardiovascular: Patient's skin is warm and dry. Respiratory: Airway is patent Respiratory effort is even, unlabored, Respiratory pattern is regular, symmetrical. GI: No signs and/or symptoms were reported involving the gastrointestinal system. : No signs and/or symptoms were reported regarding the genitourinary system. Derm: No signs and/or symptoms reported regarding the dermatologic system. Skin is pink, warm \\T\\ dry. normal. Musculoskeletal: No signs and/or symptoms reported regarding the musculoskeletal system. Circulation, motion, and sensation intact. DRESSAGE JUDGE: 12:03 LMP 11/30/2018 aj Historical: - Allergies: 12:03 Levaquin; aj1 - Home Meds: 12:03 Keppra Oral [Active]; aj1 - PMHx: 12:03 Seizures; aj1 - Immunization history:: Flu vaccine is not up to date. - Social history:: Smoking status: Patient/guardian denies using tobacco. - Ebola Screening: : Patient denies travel to an Ebola-affected area in the 21 days before illness onset. - Family history:: not pertinent. - Hospitalizations: : No recent hospitalization is reported. Screenin:05 Abuse screen: Denies threats or abuse. Denies injuries from another. Nutritional aj1 screening: No deficits noted. Tuberculosis screening: No symptoms or risk factors identified. Fall Risk None identified. Assessment: 12:05 Reassessment: see triage assessment. aj1 Vital Signs: 12:03 BP 116 / 89; Pulse 101; Resp 18; Temp 97.7; Pulse Ox 100% on R/A; Weight 74.84 kg (R); aj1 Height 5 ft. 7 in. (170.18 cm) (R); 12:03 Body Mass Index 25.84 (74.84 kg, 170.18 cm) aj1 ED Course: 11:57 Patient arrived in ED. as 12:02 Triage completed. aj1 12:03 Arm band placed on Patient placed in an exam room. aj1 12:05 Patient has correct armband on for positive identification. Bed in low position. Call aj1 light in reach. 12:05 No provider procedures requiring assistance completed. aj1 12:09 Yasir Lawler MD is Attending Physician. rn 13:00 Penny Hernandez RN is Primary Nurse. aj1 13:00 Patient did not have IV access during this emergency room visit. aj1 Administered Medications: No medications were administered Outcome: 12:27 Discharge ordered by . rn 13:00 Discharged to home ambulatory. aj1 13:00 Condition: good 13:00 Discharge instructions given to patient, Instructed on discharge instructions, follow up and referral plans. medication usage, Demonstrated understanding of instructions, follow-up care, medications, Prescriptions given X 1. 13:01 Patient left the ED. aj1 Signatures: Penny Hernandez RN RN aj1 Aislinn Boyce Roman, MD MD rn
[2018-12-26 13:20] VITALS: BP 116/89; TEMP 97.7; O2SAT 100
== END 2018-12-26 13:01 | disposition home or self-care (01) ==
LOC: ER 11:53
PROC: 09C03ZZ Extirpation of Matter from Right External Ear, Percutaneous Approach (ICD-10-PCS; principal; 2018-12-26)
DX: H60.11 Cellulitis of right external ear (principal); G40.909 Epilepsy, unspecified, not intractable, without status epilepticus; Z88.1 Allergy status to other antibiotic agents
CPT/HCPCS: 99282